=== PATIENT | female | born 1985 | race Caucasian/White ===

== ENCOUNTER → 2017-02-28 | Outpatient (CLI) | payer OTHER ==
[~2017-02-28] MED LIST: IBS; IBUPROFEN600 MG PO; ZOLOFT25 MG PO
== END | disposition home or self-care (01) ==
LOC: US 06:50
DX: N83.201 Unspecified ovarian cyst, right side (principal); N94.9 Unspecified condition associated with female genital organs and menstrual cycle; Z90.710 Acquired absence of both cervix and uterus

== ENCOUNTER → 2017-11-07 | Outpatient (CLI) | payer OTHER | END | disposition home or self-care (01) | LOC: US 12:11 | DX: N83.201 Unspecified ovarian cyst, right side (principal); N94.9 Unspecified condition associated with female genital organs and menstrual cycle; Z90.710 Acquired absence of both cervix and uterus ==

== ENCOUNTER 2025-04-06 03:25 | Emergency (ER) | payer OTHER ==
[~2025-04-06] VITALS: Ht 157.4 cm; Wt 59.0 kg
[2025-04-06] MEDS ORDERED: BUPROPION HYDR200 M2 PO (03:39)
[2025-04-06] MEDS ORDERED: BUPROPION HYDR150 M1 PO (03:39)
[2025-04-06] MEDS ORDERED: VRAYLAR3 MG PO (03:40)
[2025-04-06] MEDS ORDERED: DICYCLOMINE HYD10 MG PO (03:40)
[2025-04-06 04:48] LABS: BILIRUBIN Negative (Negative); BLOOD Negative (Negative); CLARITY Clear (Clear); COLOR Yellow (Yellow); KETONE Trace (Negative); LEUKO ESTERASE Negative (Negative); NITRITE Negative (Negative); PH 5.0 (4.5-8.0); SPECIFIC GRAVITY 1.015 (1.001-1.030); UROBILINOGEN 1.0 E.U./dl (0.0-1.0)
[2025-04-06 05:05] LABS: MUCOUS TRACE; RBC 0-2 rbc/hpf (0-2); WBC 0-2 wbc/hpf (0-5)
== END 2025-04-06 07:27 | disposition home or self-care (01) ==
LOC: ED 03:25
PROVIDERS: Internal Medicine
DX: N83.201 Unspecified ovarian cyst, right side (principal); K59.00 Constipation, unspecified; Z90.710 Acquired absence of both cervix and uterus